=== PATIENT | female | born 1940 | race Caucasian/White ===

== ENCOUNTER 2022-01-02 16:31 | Inpatient (IN) | payer OTHER ==
[~2022-01-02 16:31] MED LIST: Iopamidol-370 76% 500 ML 1 ML ONE
[2022-01-02 17:39] LABS: ALT (SGPT) 29 U/L (8-55); AST (SGOT) 53 U/L (5-34); Albumin 3.4 g/dL (3.4-4.8); Alkaline Phosphatase 65 U/L (40-110); Anion Gap 12 mmol/L (10-20); BUN (Urea Nitrogen) 25 mg/dL (9.8-20.1); Bilirubin, Total 0.6 mg/dL (0.2-1.2); Calc. Creatinine Clearance 0 mL/min (70-130); Carbon Dioxide 29 mmol/L (23-31); Chloride 98 mmol/L (98-107); Estimated GFR 53; Globulin 2.3 g/dL (2.4-3.5); Glucose 135 mg/dL (83-110); Potassium 4.5 mmol/L (3.5-5.1); Protein, Total 5.7 g/dL (5.8-8.1); Sodium 134 mmol/L (136-145)
[2022-01-02 18:01] LABS: #Lymphocytes 1.1 thou/uL (1.20-3.40); #Monocytes 0.5 thou/uL (0.11-0.59); #Neutrophils 5.5 thou/uL (1.40-6.50); %Basophils 0.1 % (0.0-1.0); %Eosinophils 0.2 % (0.0-10.0); %Lymphocytes 15.6 % (21.0-51.0); %Monocytes 7.4 % (0.0-10.0); %Neutrophils 76.7 % (42.0-75.0); Hemoglobin 9.8 g/dL (12.0-16.0); Mean Corpuscular Hemoglobin 23.3 pg (27.0-31.0); Mean Corpuscular Volume 77.8 fl (78.0-98.0); Mean Platelet Volume 8.2 fL (7.4-10.4); Platelet Count 214 thou/uL (130-400); RBC Distribution Width 14.2 % (11.5-14.5); Red Blood Cell (RBC) Count 4.18 mill/uL (4.20-5.40); White Blood Cell (WBC) Count 7.1 thou/uL (4.8-10.8)
[2022-01-02] MEDS ORDERED: methylPREDNISolone Sod Succ/PF 125 MG/2 ML VIAL ONE (18:02)
[2022-01-02 18:04] LABS: CKMB 7.5 ng/mL (0-6.6)
[2022-01-02 18:17] LABS: Hypochromia SLIGHT = 6-15 cells (100X) (0-5/hpf); MDiff Complete? YES; Microcytosis SLIGHT = 6-15 cells (100X) (0-5/hpf); Ovalocytes SLIGHT = 2-5 cells (100X) (0-1/hpf); Platelet Morphology Comment Appears Adequate; Polychromasia SLIGHT = 2-3 cells (100X) (0-2/hpf)
[2022-01-02] MEDS ORDERED: Furosemide 40 MG/4 ML VIAL ONE (22:06)
[2022-01-02 22:33] LABS: Bacteria/HPF None Seen HPF (None Seen); Bilirubin Negative (Negative); Blood, Urine Negative (Negative); Clarity Clear (Clear); Glucose, Urine (Dipstick) Normal (Negative); Ketone, Urine 10 mg/dL (Negative); Leukocyte Negative Leu/uL (Negative); Nitrite Negative (Negative); Protein, Urine (Dipstick) 30 mg/dL (Neg-Trace); RBC/HPF 0-3 HPF (0-3); Squamous Epithelial 0-3 HPF (0-3); Urobilinogen Normal mg/dL (Less than 2); WBC/HPF 0-3 HPF (0-3)
[2022-01-02] MEDS ORDERED: Ondansetron PF 4 MG/2 ML Vial IVP PRN (22:35)
[2022-01-02] MEDS ORDERED: Ondansetron ODT 4 MG TAB PO PRN (22:35)
[2022-01-02] MEDS ORDERED: Acetaminophen 325 MG TAB PO PRN (22:35)
[2022-01-02] MEDS ORDERED: Acetaminophen 650 MG Suppository PR PRN (22:35)
[2022-01-02 22:36] LABS: Specific Gravity, Urine Greater than 1.065 (1.002-1.036)
[2022-01-02] MEDS ORDERED: Electrolyte Replacement Protocol 1 EACH FS PRN (22:45)
[2022-01-02 23:27] LABS: Magnesium 2.1 mg/dL (1.6-2.6)
[2022-01-02 23:33] LABS: Troponin I 0.056 ng/mL (< 0.028)
[2022-01-02] MEDS ORDERED: Dextrose 50% Abboject 50 ML SYRINGE SLOW IVP PRN (23:33)
[2022-01-02] MEDS ORDERED: HumaLOG 300 UNITS/3 ML VIAL SC PRN (23:33)
[2022-01-02] MEDS ORDERED: Dextrose 5% in Water 1,000 ML IV PRN (23:33)
[2022-01-02] MEDS ORDERED: Aspirin 325 MG TAB PO SCH (23:46)
[2022-01-03] MEDS ORDERED: Aspirin 325 MG TAB PO SCH (00:15)
[2022-01-03 00:43] LABS: Actual Bicarbonate (HCO3a) 28.1 mEq/L (22-28); Base Excess (BEa) 0.7 mEq/L (-2.0 to +3.0); CO2 Tension 58.9 mmHg (35.0-45.0); Calcium, Ionized (arterial) 1.16 mmol/L (1.12-1.30); Carboxyhemoglobin (COHb) 0.8 gm% (0.0-3.0); Hemoglobin (Hb) 11.2 g/dL (12.0-16.0); O2 Tension (PaO2), arterial 62.5 mmHg (> 60.0); Potassium - ABG Lab 4.75 mmol/L (3.70-5.30)
[2022-01-03 00:59] VITALS: BMI 39.9
[2022-01-03] MEDS ORDERED: Enoxaparin Sodium 100 MG/ML SYRINGE SC SCH (01:00)
[2022-01-03 03:02] LABS: Actual Bicarbonate (HCO3a) 28.2 mEq/L (22-28); Base Excess (BEa) 2.3 mEq/L (-2.0 to +3.0); CO2 Tension 50.1 mmHg (35.0-45.0); Calcium, Ionized (arterial) 1.12 mmol/L (1.12-1.30); Carboxyhemoglobin (COHb) 0.7 gm% (0.0-3.0); Hemoglobin (Hb) 10.7 g/dL (12.0-16.0); O2 Tension (PaO2), arterial 64.2 mmHg (> 60.0); Potassium - ABG Lab 4.64 mmol/L (3.70-5.30); pH, Arterial 7.37 (7.35-7.45)
[2022-01-03 03:06] LABS: Puncture Site L RAD
[2022-01-03 03:11] LABS: ALV-art Gradient 129.855 mmHg (0-20)
[2022-01-03 04:30] LABS: #Lymphocytes 0.4 thou/uL (1.20-3.40); #Monocytes 0.1 thou/uL (0.11-0.59); #Neutrophils 4.7 thou/uL (1.40-6.50); %Eosinophils 0.2 % (0.0-10.0); %Lymphocytes 8.4 % (21.0-51.0); %Monocytes 1.3 % (0.0-10.0); %Neutrophils 90.1 % (42.0-75.0); Hemoglobin 9.8 g/dL (12.0-16.0); Mean Corpuscular HGB CONC 29.6 g/dL (32.0-36.0); Mean Corpuscular Hemoglobin 23.3 pg (27.0-31.0); Mean Corpuscular Volume 78.8 fl (78.0-98.0); Mean Platelet Volume 7.8 fL (7.4-10.4); Platelet Count 208 thou/uL (130-400); Red Blood Cell (RBC) Count 4.21 mill/uL (4.20-5.40); White Blood Cell (WBC) Count 5.2 thou/uL (4.8-10.8)
[2022-01-03 04:41] LABS: Anion Gap 13 mmol/L (10-20); BUN (Urea Nitrogen) 25 mg/dL (9.8-20.1); Calc. Creatinine Clearance 63 mL/min (70-130); Calcium 8.5 mg/dL (7.8-10.44); Carbon Dioxide 27 mmol/L (23-31); Chloride 96 mmol/L (98-107); Estimated GFR 46; Glucose 305 mg/dL (83-110); Potassium 4.6 mmol/L (3.5-5.1); Sodium 131 mmol/L (136-145)
[2022-01-03 04:46] LABS: Troponin I 0.019 ng/mL (< 0.028)
[2022-01-03] MEDS: HumaLOG 300 UNITS/3 ML VIAL SC PRN ×3 (06:03→17:39)
[2022-01-03] MEDS ORDERED: Magnesium 2 GM/50 ML(in water) 2 GM in Premix Bag 1 BAG IVPB SCH (08:00)
[2022-01-03] MEDS: Enoxaparin Sodium 100 MG/ML SYRINGE SC SCH ×2 (08:20→20:25)
[2022-01-03] MEDS: Furosemide 40 MG/4 ML VIAL SLOW IVP SCH (08:20)
[2022-01-03] MEDS: Aspirin 81 mg Enteric Coated Tablet PO SCH (08:20)
[2022-01-03] MEDS ORDERED: Enoxaparin Sodium 40 MG/0.4 ML SYRINGE SC SCH (09:00)
[2022-01-03] MEDS ORDERED: Promethazine 25 MG TAB PO PRN (14:39)
[2022-01-03] MEDS ORDERED: methylPREDNISolone Sod Succ 40 MG VIAL IVP SCH (15:15)
[2022-01-03] MEDS: cefTRIAXone\\ROCEPHIN 1 GM in Sodium Chloride 0.9% 100 ML IVPB SCH (15:57)
[2022-01-03] MEDS: Azithromycin 500 MG in Sodium Chloride 0.9% 250 ML 250 ML IVPB SCH (17:39)
[2022-01-04] MEDS: HumaLOG 300 UNITS/3 ML VIAL SC PRN (05:44)
[2022-01-04 07:44] LABS: Iron 14 ug/dL (50-170); Iron Binding Capacity, Total 405 mcg/dL (265-497); Magnesium 2.3 mg/dL (1.6-2.6)
[2022-01-04] MEDS ORDERED: Ferrous Sulfate 325 MG TAB PO SCH (08:15)
[2022-01-04] MEDS: Aspirin 81 mg Enteric Coated Tablet PO SCH (08:35)
[2022-01-04] MEDS: Multivit, Therapeutic 1 TAB PO SCH (08:35)
[2022-01-04] MEDS: Empagliflozin 10 MG TAB PO SCH (08:35)
[2022-01-04] MEDS: Enoxaparin Sodium 100 MG/ML SYRINGE SC SCH (08:35)
[2022-01-04] MEDS: Furosemide 40 MG/4 ML VIAL SLOW IVP SCH (08:36)
[2022-01-04] MEDS ORDERED: methylPREDNISolone Sod Succ 40 MG VIAL IVP SCH ×2 (09:00)
[2022-01-04] MEDS: cefTRIAXone\\ROCEPHIN 1 GM in Sodium Chloride 0.9% 100 ML IVPB SCH (16:08)
[2022-01-04] MEDS: Azithromycin 500 MG in Sodium Chloride 0.9% 250 ML 250 ML IVPB SCH (17:01)
[2022-01-05] MEDS ORDERED: predniSONE 20 MG TAB PO SCH (08:00)
[2022-01-05] MEDS: Ferrous Sulfate 325 MG TAB PO SCH (09:18)
[2022-01-05] MEDS: Empagliflozin 10 MG TAB PO SCH (09:18)
[2022-01-05] MEDS: Aspirin 81 mg Enteric Coated Tablet PO SCH (09:18)
[2022-01-05] MEDS: Furosemide 40 MG/4 ML VIAL SLOW IVP SCH (09:19)
[2022-01-05] MEDS: Multivit, Therapeutic 1 TAB PO SCH (09:19)
[2022-01-05] MEDS ORDERED: Pantoprazole 40 MG VIAL IVP SCH (15:15)
[2022-01-05] MEDS: cefTRIAXone\\ROCEPHIN 1 GM in Sodium Chloride 0.9% 100 ML IVPB SCH (16:22)
[2022-01-05] MEDS: HumaLOG 300 UNITS/3 ML VIAL SC PRN (16:56)
[2022-01-05] MEDS ORDERED: Amlodipine 5 MG TAB PO SCH (17:00)
[2022-01-05] MEDS: Azithromycin 500 MG in Sodium Chloride 0.9% 250 ML 250 ML IVPB SCH (17:25)
[2022-01-05] MEDS: Pantoprazole 40 MG VIAL IVP SCH (20:20)
[2022-01-06] MEDS ORDERED: predniSONE 20 MG TAB PO SCH (08:00)
[2022-01-06 08:34] LABS: #Eosinphils 0.1 thou/uL (0.0-0.7); #Lymphocytes 2.3 thou/uL (1.20-3.40); #Monocytes 0.8 thou/uL (0.11-0.59); #Neutrophils 7.1 thou/uL (1.40-6.50); %Basophils 0.1 % (0.0-1.0); %Eosinophils 0.5 % (0.0-10.0); %Lymphocytes 22.1 % (21.0-51.0); %Monocytes 7.4 % (0.0-10.0); %Neutrophils 69.8 % (42.0-75.0); Hemoglobin 9.5 g/dL (12.0-16.0); Mean Corpuscular HGB CONC 31.2 g/dL (32.0-36.0); Mean Corpuscular Hemoglobin 24.2 pg (27.0-31.0); Mean Corpuscular Volume 77.8 fl (78.0-98.0); Mean Platelet Volume 7.4 fL (7.4-10.4); Platelet Count 298 10x3/uL (130-400); RBC Distribution Width 14.1 % (11.5-14.5); Red Blood Cell (RBC) Count 3.92 mill/uL (4.20-5.40); White Blood Cell (WBC) Count 10.2 10x3/uL (4.8-10.8)
[2022-01-06] MEDS: Pantoprazole 40 MG VIAL IVP SCH (08:51)
[2022-01-06] MEDS ORDERED: FLU VACC QS2022-23(65YR UP)/PF 240 MCG/0.7 ML SYRINGE IM ONE (09:00)
[2022-01-06] MEDS ORDERED: Amlodipine 5 MG TAB PO SCH (09:00)
[2022-01-06] MEDS: Furosemide 40 MG/4 ML VIAL SLOW IVP SCH (09:06)
[2022-01-06] MEDS: Ferrous Sulfate 325 MG TAB PO SCH (09:07)
[2022-01-06] MEDS: Multivit, Therapeutic 1 TAB PO SCH (09:07)
[2022-01-06] MEDS: Empagliflozin 10 MG TAB PO SCH (09:07)
[2022-01-06] MEDS: HumaLOG 300 UNITS/3 ML VIAL SC PRN (11:38)
[2022-01-06 11:58] VITALS: TEMP 98.5
[2022-01-06 15:46] VITALS: BP 143/77
[2022-01-06] MEDS: cefTRIAXone\\ROCEPHIN 1 GM in Sodium Chloride 0.9% 100 ML IVPB SCH (16:32)
[2022-01-06] MEDS: Azithromycin 500 MG in Sodium Chloride 0.9% 250 ML 250 ML IVPB SCH ×2 (16:32→17:09)
== END 2022-01-06 17:35 | disposition home or self-care (01) | DRG 189 ==
LOC: ERS 16:31 → NEURO 22:02
PROVIDERS: ADMIT Internal Medicine; ATTEND Internal Medicine
DX: J96.21 Acute and chronic respiratory failure with hypoxia (principal); Z66 Do not resuscitate; Z20.822 Contact with and (suspected) exposure to COVID-19; I50.33 Acute on chronic diastolic (congestive) heart failure; J44.1 Chronic obstructive pulmonary disease with (acute) exacerbation; E87.1 Hypo-osmolality and hyponatremia; Z68.42 Body mass index [BMI] 45.0-49.9, adult; K62.5 Hemorrhage of anus and rectum; D68.32 Hemorrhagic disorder due to extrinsic circulating anticoagulants; F17.210 Nicotine dependence, cigarettes, uncomplicated; D50.9 Iron deficiency anemia, unspecified; Z53.20 Procedure and treatment not carried out because of patient's decision for unspecified reasons; I11.0 Hypertensive heart disease with heart failure; E66.01 Morbid (severe) obesity due to excess calories; R77.8 Other specified abnormalities of plasma proteins; T39.015A Adverse effect of aspirin, initial encounter; T45.515A Adverse effect of anticoagulants, initial encounter; Z88.2 Allergy status to sulfonamides; Z91.09 Other allergy status, other than to drugs and biological substances; Z79.899 Other long term (current) drug therapy; Z90.49 Acquired absence of other specified parts of digestive tract; Z90.710 Acquired absence of both cervix and uterus; Z90.89 Acquired absence of other organs
CPT/HCPCS: 36415; 36416; 71045; 71275; 80048; 80053; 81003; 81015; 82274; 82553; 82728; 82805; 83540; 83550; 83735; 83880; 84484; 85025; 93005; 93798; 94640; 94760; 96374; 96375; C9113; J0456; J0696; J1650; J1815; J1940; J2920; J2930; J3475; J3490; J7050; J7512; J7620; Q9967; U0003; U0005